=== PATIENT | male | born 1940 | race Caucasian/White ===

== ENCOUNTER 2022-08-24 08:57 | Day surgery (SDC) | payer MEDICARE, OTHER ==
[~2022-08-24 08:57] MED LIST: Lactated Ringers 1,000 ML IV SCH
[2022-08-24] MEDS ORDERED: Midazolam 1 MG/ML 2 ML SDV ONE (10:45)
[2022-08-24] MEDS ORDERED: Propofol 200 MG/20 ML SDV ONE (10:46)
[2022-08-24] MEDS ORDERED: fentaNYL 100 MCG/2 ML SDV ONE (10:47)
== END 2022-08-24 12:25 | disposition home or self-care (01) ==
LOC: VM.SDS 08:57
PROVIDERS: ATTEND Student in an Organized Health Care Education/Training Program
DX: Z12.11 Encounter for screening for malignant neoplasm of colon (principal); D12.0 Benign neoplasm of cecum; D12.4 Benign neoplasm of descending colon; D12.5 Benign neoplasm of sigmoid colon; D12.3 Benign neoplasm of transverse colon; L84 Corns and callosities; J06.9 Acute upper respiratory infection, unspecified; I10 Essential (primary) hypertension; E78.5 Hyperlipidemia, unspecified; I25.10 Atherosclerotic heart disease of native coronary artery without angina pectoris; Z88.6 Allergy status to analgesic agent; Z91.041 Radiographic dye allergy status; Z79.899 Other long term (current) drug therapy
CPT/HCPCS: 00812; 88305; J2250; J2704; J3010; J7120